=== PATIENT | female | born 1995 | race Caucasian/White ===

== ENCOUNTER 2019-07-07 21:20 | Emergency (ER) | payer BC ==
[~2019-07-07] VITALS: Ht 157.5 cm; Wt 54.4 kg
[2019-07-07] MEDS ORDERED: ELMIRON 100 MG100 M1 PO (21:33)
[2019-07-07] MEDS ORDERED: LOESTRIN FE 1-1 EACH PO (21:33)
[2019-07-07] MEDS ORDERED: SINGULAIR 10 MG10 M1 PO (21:33)
[2019-07-07] MEDS ORDERED: PROAIR HFA8.5 GM INH (21:34)
[2019-07-07 22:19] LABS: INFLUENZA A ANTIGEN Negative (Negative); INFLUENZA B ANTIGEN Negative (Negative)
[2019-07-07] MEDS ORDERED: TAMIFLU75 MG PO (22:32)
[2019-07-07] MEDS ORDERED: ALBUTEROL2.5 MG/31 INH (22:32)
[2019-07-07] MEDS ORDERED: MEDROLDOSEPACK PO (22:32)
[2019-07-07 23:06] VITALS: BP 121/83
== END 2019-07-07 23:06 | disposition home or self-care (01) ==
LOC: M.ERS 21:20
PROVIDERS: Emergency Medicine
DX: J06.9 Acute upper respiratory infection, unspecified (principal); J45.909 Unspecified asthma, uncomplicated; Z91.030 Bee allergy status; Z88.8 Allergy status to other drugs, medicaments and biological substances